=== PATIENT | female | born 1990 | race Caucasian/White ===

== ENCOUNTER 2020-02-16 19:16 | Emergency (ER) | payer BC, OTHER, SELFPAY ==
[~2020-02-16] VITALS: Ht 162.6 cm; Wt 100.3 kg
[2020-02-16 20:38] LABS: BASOPHILS # (AUTO) 0.03 x10^3/uL (0-0.1); BASOPHILS % (AUTO) 0 % (0-1); EOSINOPHILS # (AUTO) 0.04 x10^3/uL (0-0.4); EOSINOPHILS % (AUTO) 1 % (1-7); LYMPHOCYTES # (AUTO) 1.88 x10^3/uL (1-3.4); LYMPHOCYTES % (AUTO) 24 % (22-44); MD NO; MEAN CORPUSCULAR HEMOGLOBIN 30.1 pg (27.0-34.8); MEAN CORPUSCULAR HGB CONC 34.4 g/dL (32.4-35.8); MEAN CORPUSCULAR VOLUME 87.4 fL (80-100); MEAN PLATELET VOLUME 7.8 fL (7.4-10.4); MONOCYTES # (AUTO) 0.66 x10^3/uL (0.2-0.8); MONOCYTES % (AUTO) 8 % (2-9); NEUTROPHILS # (AUTO) 5.29 x10^3/uL (1.8-6.8); NEUTROPHILS % (AUTO) 67 % (42-75); PLATELET COUNT 267 x10^3/uL (130-400); RED BLOOD COUNT 4.81 x10^6/uL (3.82-5.3); RED CELL DISTRIBUTION WIDTH 13.3 % (9.6-15.2)
[2020-02-16 20:44] LABS: ALBUMIN 3.6 g/dL (3.4-5.0); ANION GAP 4 mmol/L (5-15); CALCIUM 8.3 mg/dL (8.5-10.1); CHLORIDE 107 mmol/L (98-107); CREATININE 0.86 mg/dL (0.55-1.02)
[2020-02-16] MEDS ORDERED: SODIUM CHLORIDE FLUSH 10ML SYR IVF ONE (21:30)
--- NOTE | 2020-02-16 21:50 | NUR ---
LAB CALLED ON TO ADD ON BETA HCG. IV PLACED IN LEFT AC. PT TO ED WITH C/O CHEST TIGHTNESS, MILD SHORTNESS OF BREATH, AND LOW GRADE FEVER AT HOME. PT WITH RESPIRATIONS EASY/UNLABORED. VSS.
--- NOTE | 2020-02-16 21:50 | NUR ---
CTA PENDING BETA.
--- NOTE | 2020-02-16 22:28 | NUR ---
PT TO AND FROM CT.
[2020-02-16] MEDS ORDERED: OMNIPAQUE 350 MG/ML, 75ML BOTTLE ONE (22:33)
[2020-02-16 23:22] VITALS: BP 123/80
== END 2020-02-17 00:09 | disposition home or self-care (01) ==
LOC: ED 23:15
DX: J12.9 Viral pneumonia, unspecified (principal); R42 Dizziness and giddiness; Z86.718 Personal history of other venous thrombosis and embolism
CPT/HCPCS: 36415; 71046; 71275; 80048; 82040; 84703; 85025; 85379; 93005; 99285; Q9967

== ENCOUNTER 2020-02-21 01:04 | Emergency (ER) | payer OTHER ==
[~2020-02-21] VITALS: Ht 162.6 cm; Wt 97.0 kg
[2020-02-21] MEDS ORDERED: LORazepam 1MG TABLET PO ONE (01:30)
[2020-02-21] MEDS ORDERED: LORazepam 1MG TABLET ONE (01:38)
[2020-02-21 01:50] LABS: MD YES; MEAN CORPUSCULAR HEMOGLOBIN 29.6 pg (27.0-34.8); MEAN CORPUSCULAR HGB CONC 33.8 g/dL (32.4-35.8); MEAN CORPUSCULAR VOLUME 87.5 fL (80-100); MEAN PLATELET VOLUME 7.5 fL (7.4-10.4); PLATELET COUNT 317 x10^3/uL (130-400); RED CELL DISTRIBUTION WIDTH 13.4 % (9.6-15.2)
[2020-02-21 01:52] LABS: BASOPHILS # (AUTO) 0.14 x10^3/uL (0-0.1); BASOPHILS % (AUTO) 1 % (0-1); EOSINOPHILS # (AUTO) 0.18 x10^3/uL (0-0.4); EOSINOPHILS % (AUTO) 1 % (1-7); LYMPHOCYTES # (AUTO) 2.62 x10^3/uL (1-3.4); LYMPHOCYTES % (AUTO) 21 % (22-44); MONOCYTES # (AUTO) 1.08 x10^3/uL (0.2-0.8); MONOCYTES % (AUTO) 9 % (2-9); NEUTROPHILS # (AUTO) 8.39 x10^3/uL (1.8-6.8); NEUTROPHILS % (AUTO) 68 % (42-75)
[2020-02-21 02:00] LABS: ALBUMIN 3.5 g/dL (3.4-5.0); ANION GAP 6 mmol/L (5-15); CALCIUM 8.8 mg/dL (8.5-10.1); CHLORIDE 109 mmol/L (98-107); CREATININE 0.76 mg/dL (0.55-1.02)
[2020-02-21 02:04] LABS: ALKALINE PHOSPHATASE 80 U/L (45-117); BILIRUBIN,TOTAL 0.2 mg/dL (0.2-1.0); TOTAL PROTEIN 7.9 g/dL (6.4-8.2); TROPONIN I < 0.015 ng/mL (0.000-0.045)
[2020-02-21 02:09] LABS: <PLATELET ESTIMATE> ADEQUATE; <PLT MORPHOLOGY> NORMAL PLT MORPH; <RBC MORPHOLOGY> NORMAL; ALANINE AMINOTRANSFERASE 33 U/L (12-78); EOS#(MANUAL) 0.25 x10^3/uL (0.0-0.4); EOS% (MANUAL) 2 % (1-7); LYMPH#(MANUAL) 3.47 x10^3/uL (1-3.4); LYMPHS% (MANUAL) 28 % (22-44); MONOS#(MANUAL) 0.37 x10^3/uL (0.3-2.7); MONOS% (MANUAL) 3 % (2-9); SEG#(MANUAL) 8.31 x10^3/uL (1.8-6.8); SEGS% (MANUAL) 67 % (42-75)
[2020-02-21] MEDS ORDERED: DEXAMETHASONE 4 MG TABLET ONE (02:29)
[2020-02-21] MEDS ORDERED: AZITHROMYCIN 500 MG TABLET ONE (02:29)
[2020-02-21] MEDS ORDERED: AZITHROMYCIN 500 MG TABLET PO ONE (02:30)
[2020-02-21] MEDS ORDERED: DEXAMETHASONE 4 MG TABLET PO ONE (02:30)
[2020-02-21 02:34] VITALS: BP 117/79
== END 2020-02-21 03:28 | disposition home or self-care (01) ==
LOC: ED 01:42
DX: U07.1 COVID-19 (principal); J12.89 Other viral pneumonia; B34.9 Viral infection, unspecified; R11.2 Nausea with vomiting, unspecified; R07.9 Chest pain, unspecified
CPT/HCPCS: 36415; 71045; 80053; 84484; 85025; 93005; 99285

== ENCOUNTER 2020-06-19 13:36 | Emergency (ER) | payer OTHER ==
[~2020-06-19] VITALS: Ht 160 cm; Wt 100.0 kg
--- NOTE | 2020-06-19 13:53 | NUR ---
PT BROUGHT BACK FROM TRIAGE WITH CHIEF COMPLAINT OF LEFT HIP/LBP AFTER SLIPPING IN SHOWER. REPORTS LOC FOR UNKNOWN TIME. PT DENIES NUMBNESS AND TINGLING, NO LOSS OF BOWEL CONTROL.
[2020-06-19] MEDS ORDERED: HYDROmorphone 1 MG/ML, 1ML INJ IVPush PRN (14:00)
[2020-06-19] MEDS ORDERED: ONDANSETRON 2MG/ML, 2ML IVPush ONE (14:00)
[2020-06-19] MEDS ORDERED: SODIUM CHLORIDE FLUSH 10ML SYR IVF ONE (14:00)
--- NOTE | 2020-06-19 14:01 | NUR ---
TERRY REYES AT BEDSIDE FOR EVALUATION
[2020-06-19] MEDS ORDERED: HYDROmorphone 1 MG/ML, 1ML INJ ONE (14:07)
[2020-06-19] MEDS ORDERED: ONDANSETRON 2MG/ML, 2ML ONE (14:07)
--- NOTE | 2020-06-19 14:52 | NUR ---
BREAK RN: PT RESTING IN ROOM. REGULAR RESP. NO ACUTE DISTRESS NOTED. FRIEND AT BEDSIDE. CALL LIGHT IN PLACE. WILL CONTINUE TO MONITOR WHILE PRIMARY RN IS ON BREAK.
--- NOTE | 2020-06-19 15:22 | NUR ---
REPORT GIVEN TO MAGGY GONZALEZ
[2020-06-19 15:58] VITALS: BP 146/67
--- NOTE | 2020-06-19 15:59 | NUR ---
DISCHARGE INSTRUCTIONS REVIEWED
== END 2020-06-19 16:21 | disposition home or self-care (01) ==
LOC: ED 14:08
DX: S32.028A Other fracture of second lumbar vertebra, initial encounter for closed fracture (principal); S32.038A Other fracture of third lumbar vertebra, initial encounter for closed fracture; S32.048A Other fracture of fourth lumbar vertebra, initial encounter for closed fracture; W01.0XXA Fall on same level from slipping, tripping and stumbling without subsequent striking against object, initial encounter; Y93.89 Activity, other specified; Y92.098 Other place in other non-institutional residence as the place of occurrence of the external cause; Y99.8 Other external cause status
CPT/HCPCS: 36415; 72131; 72192; 84703; 96374; 96375; 99285; J1170; J2405

== ENCOUNTER 2020-07-05 19:22 | Emergency (ER) | payer OTHER ==
[~2020-07-05] VITALS: Ht 162.6 cm; Wt 89.2 kg
[2020-07-05 21:26] LABS: BASOPHILS % (AUTO) 1 % (0-1); EOSINOPHILS % (AUTO) 2 % (1-7); LYMPHOCYTES % (AUTO) 22 % (22-44); MEAN CORPUSCULAR HEMOGLOBIN 28.1 pg (27.0-34.8); MEAN CORPUSCULAR HGB CONC 33.4 g/dL (32.4-35.8); MEAN PLATELET VOLUME 7.7 fL (7.4-10.4); MONOCYTES % (AUTO) 8 % (2-9); NEUTROPHILS % (AUTO) 67 % (42-75); PLATELET COUNT 408 x10^3/uL (130-400); RED BLOOD COUNT 4.95 x10^6/uL (3.82-5.3); RED CELL DISTRIBUTION WIDTH 13.6 % (9.6-15.2)
[2020-07-05 21:27] LABS: MD NO
[2020-07-05 21:38] LABS: ALBUMIN 4.1 g/dL (3.4-5.0); ANION GAP 6 mmol/L (5-15); CALCIUM 8.7 mg/dL (8.5-10.1); CHLORIDE 106 mmol/L (98-107)
[2020-07-05 21:39] LABS: CREATININE 0.96 mg/dL (0.55-1.02)
[2020-07-05 22:52] LABS: HCG UR SG 1.023 (1.003-1.030); MICROSCOPIC NOT IND
--- NOTE | 2020-07-05 23:04 | NUR ---
PT HAVING LEFT UPPER ABDOMINAL/RIB PAIN. PT STATES SHE HAD FALL 3 WKS AGO WITH FX AND PAIN WAS STABLE UNTIL TODAY WHEN SHE COUGHED. PT HAS GARDED MOVEMENT, ABLE TO AMBULATE TO RESTROOM FOR URINE SAMPLE, IV ESTABLISHED, PT ON ALL MONITORS, AWAITING CT SCAN.
[2020-07-05] MEDS ORDERED: KETOROLAC 30 MG/1 ML ONE (23:47)
[2020-07-05] MEDS ORDERED: ONDANSETRON 2MG/ML, 2ML ONE (23:47)
[2020-07-05] MEDS ORDERED: MORPHINE SULFATE 4 MG/ML, 1ML ONE (23:47)
[2020-07-06] MEDS ORDERED: MORPHINE SULFATE 4 MG/ML, 1ML IVPush PRN
[2020-07-06] MEDS ORDERED: KETOROLAC 30 MG/1 ML IVPush ONE
[2020-07-06] MEDS ORDERED: ONDANSETRON 2MG/ML, 2ML IVPush ONE
[2020-07-06] MEDS ORDERED: OMNIPAQUE 350 MG/ML, 75ML BOTTLE ONE (00:22)
--- NOTE | 2020-07-06 00:23 | NUR ---
PT BACK FROM CT, MEDICATED FOR PAIN PER EMAR, ALL MONITORS IN PLACE, PT STATES NO OTHER NEEDS AT THIS TIME. AWAITING CT READ
[2020-07-06 01:11] VITALS: BP 108/64
== END 2020-07-06 01:27 | disposition home or self-care (01) ==
LOC: ED 22:58
DX: S29.011A Strain of muscle and tendon of front wall of thorax, initial encounter (principal); R94.31 Abnormal electrocardiogram [ECG] [EKG]; Z86.73 Personal history of transient ischemic attack (TIA), and cerebral infarction without residual deficits; X58.XXXA Exposure to other specified factors, initial encounter; Y93.89 Activity, other specified; Y92.89 Other specified places as the place of occurrence of the external cause; Y99.8 Other external cause status
CPT/HCPCS: 36415; 71101; 71275; 80048; 81003; 81025; 82040; 84703; 85025; 93005; 96374; 96375; 99285; J1885; J2270; J2405; Q9967

== ENCOUNTER 2021-04-29 01:05 | Outpatient (CLI) | payer OTHER ==
[~2021-04-29] VITALS: Ht 162.6 cm; Wt 103.4 kg
[2021-04-29] MEDS ORDERED: ONDANSETRON ODT 4 MG ONE (01:54)
[2021-04-29] MEDS ORDERED: ONDANSETRON ODT 4 MG PO ONE (02:00)
== END 2021-04-29 04:38 | disposition home or self-care (01) ==
LOC: LDOP 01:05
PROVIDERS: ATTEND Obstetrics & Gynecology
DX: O21.9 Vomiting of pregnancy, unspecified (principal); O26.893 Other specified pregnancy related conditions, third trimester; R10.9 Unspecified abdominal pain; M54.5 Low back pain; Z3A.37 37 weeks gestation of pregnancy
CPT/HCPCS: 59025; Q0162

== ENCOUNTER 2021-04-29 10:41 | Outpatient (CLI) | payer OTHER ==
[~2021-04-29] VITALS: Ht 162.6 cm; Wt 103.6 kg
[2021-04-29] MEDS ORDERED: ONDANSETRON 2MG/ML, 2ML ONE (10:47)
[2021-04-29] MEDS: ONDANSETRON 2MG/ML, 2ML IVPush PRN ×2 (11:00→13:50)
[2021-04-29] MEDS ORDERED: LACTATED RINGERS 1,000 ML IVBOLUS ONE (11:00)
[2021-04-29 11:20] LABS: MICROSCOPIC INDICATED
[2021-04-29 11:28] LABS: BASOPHILS % (AUTO) 0 % (0-1); EOSINOPHILS % (AUTO) 1 % (1-7); LYMPHOCYTES % (AUTO) 6 % (22-44); MEAN CORPUSCULAR HEMOGLOBIN 28.6 pg (27.0-34.8); MEAN PLATELET VOLUME 7.6 fL (7.4-10.4); MONOCYTES % (AUTO) 4 % (2-9); NEUTROPHILS % (AUTO) 90 % (42-75); PLATELET COUNT 239 x10^3/uL (130-400); RED BLOOD COUNT 4.11 x10^6/uL (3.82-5.3); RED CELL DISTRIBUTION WIDTH 14.4 % (9.6-15.2)
[2021-04-29 11:39] LABS: ANION GAP 8 mmol/L (5-15); CALCIUM 7.7 mg/dL (8.5-10.1); CHLORIDE 108 mmol/L (98-107); CREATININE 0.51 mg/dL (0.55-1.02)
[2021-04-29 11:40] LABS: ALANINE AMINOTRANSFERASE 20 U/L (12-78); ALBUMIN 2.5 g/dL (3.4-5.0)
[2021-04-29 11:42] LABS: ALKALINE PHOSPHATASE 83 U/L (45-117); BILIRUBIN,TOTAL 0.4 mg/dL (0.2-1.0); TOTAL PROTEIN 6.8 g/dL (6.4-8.2)
== END 2021-04-29 14:08 | disposition home or self-care (01) ==
LOC: LDOP 10:41
PROVIDERS: ATTEND Obstetrics & Gynecology
DX: O21.2 Late vomiting of pregnancy (principal); O26.893 Other specified pregnancy related conditions, third trimester; R10.9 Unspecified abdominal pain; M54.5 Low back pain; Z3A.37 37 weeks gestation of pregnancy
CPT/HCPCS: 36415; 59025; 80053; 81001; 85025; 87635; 96361; 96374; 96376; J2405; J7120; 96360; 96375